=== PATIENT | male | born 1965 | race Caucasian/White ===

== ENCOUNTER 2019-10-03 19:23 | Emergency (ER) | payer MEDICARE, BC ==
[~2019-10-03] VITALS: Ht 182.9 cm; Wt 91.0 kg
[~2019-10-03 19:23] MED LIST: ACID1TAB7 PO; AMLO2.5T5 PO; CARV-39 PO; DOXA2TAB PO; ERGO500017 PO; LANT1000 PO; LOSA50TA14 PO; MYCO250C4 PO; TACR1CAP4 PO
[2019-10-03 19:24] VITALS: BP 156/82
--- NOTE | 2019-10-03 20:14 | NUR ---
Patient/Caregiver given discharge instructions and they have confirmed that they understand the instructions. Patient ambulatory with steady gait.
== END 2019-10-03 20:15 | disposition home or self-care (01) ==
LOC: ED 20:05
DX: T82.838A Hemorrhage due to vascular prosthetic devices, implants and grafts, initial encounter (principal); I10 Essential (primary) hypertension
CPT/HCPCS: 99283